=== PATIENT | female | born 1935 | race Caucasian/White ===

== ENCOUNTER 2021-08-02 19:20 | Emergency (ER) | payer MEDICARE ==
[2021-08-02] MEDS ORDERED: Amoxicillin/Potassium Clav 875 MG TAB ONE (20:27)
== END 2021-08-02 20:32 | disposition home or self-care (01) ==
LOC: MADERS 19:20
DX: S91.351A Open bite, right foot, initial encounter (principal); E03.9 Hypothyroidism, unspecified; I10 Essential (primary) hypertension; E78.5 Hyperlipidemia, unspecified; W55.01XA Bitten by cat, initial encounter
CPT/HCPCS: 99283

== ENCOUNTER 2022-07-15 15:06 | Outpatient (CLI) | payer MEDICARE | END 2022-07-15 15:07 | disposition home or self-care (01) | LOC: MADRAD 15:06 | PROVIDERS: ATTEND Registered Nurse | DX: M25.511 Pain in right shoulder (principal); W19.XXXA Unspecified fall, initial encounter ==